=== PATIENT | male | born 1965 | race Caucasian/White ===

== ENCOUNTER 2019-03-13 16:41 | Emergency (ER) | payer OTHER ==
[2019-03-13 17:09] VITALS: BP 129/67
--- NOTE | 2019-03-13 17:18 | UC ---
Back Pain HPI - HPI Summary HPI Summary: pt is c/o pain across his low back after he bent forward to lift a tub of mail out of his trunk today. he was going to go home but his employer advise he get checked. - History of Current Complaint Chief Complaint: UCBackPain Stated Complaint: BACK STRAIN Time Seen by Provider: 03/13/19 17:02 Hx Obtained From: Patient Onset/Duration: Sudden Onset Timing: Constant Pain Intensity: 6 Aggravating Factor(s): Other - leaning back and twisting Associated Signs And Symptoms: Positive: Other - no saddle anesthesia. Negative : Fever, Weakness, Numbness, Tingling, Abdominal Pain, Flank Pain, Bladder Incontinence, Bowel Incontinence - Risk Factors Cauda Equina Risk Factors: Negative Epidural Abscess Risk Factors: Negative - Allergies/Home Medications Allergies/Adverse Reactions: Allergies Allergy/AdvReac Type Severity Reaction Status Date / Time Penicillins Allergy Unknown Verified 03/13/19 17:05 Reaction Details PMH/Surg Hx/FS Hx/Imm Hx Previously Healthy: Yes - Surgical History Surgical History: None - Family History Known Family History: Positive: Non-Contributory - Social History Occupation: Employed Full-time Alcohol Use: Weekly Substance Use Type: None Smoking Status (MU): Never Smoked Tobacco - Immunization History Most Recent Tetanus Shot: utd Review of Systems All Other Systems Reviewed And Are Negative: No Constitutional: Negative: Fever, Chills Gastrointestinal: Negative: Abdominal Pain Musculoskeletal: Negative: Decreased ROM Neurological: Negative: Weakness, Paresthesia, Numbness Physical Exam Triage Information Reviewed: Yes Appearance: Well-Appearing Vital Signs: Initial Vital Signs Temp 99.1 F 03/13/19 17:05 Pulse 58 03/13/19 17:05 Resp 16 03/13/19 17:05 BP 129/67 03/13/19 17:05 Pulse Ox 100 03/13/19 17:05 Vital Signs Reviewed: Yes Eyes: Positive: Conjunctiva Clear ENT: Positive: Normal ENT inspection Neck: Positive: Supple, Nontender, No Lymphadenopathy, Other: - c-spine non tender Respiratory: Positive: No respiratory distress Cardiovascular: Positive: RRR Abdomen Description: Positive: Nontender, No Organomegaly, Soft. Negative: Pulsatile Mass Bowel Sounds: Positive: Present Musculoskeletal: Positive: Other: - Back: no rash. mild decrease in lumbar lordosis. Spine is non tender. Back is non tender over paraspinal mm's. ROM intact in all directions, pt notes twisting and hyperextension cause some mild discomfort. 5/5 strenght, 1+ reflexes and sensation intactx4. no saddle anesthesia. Steady gait. Negative straight leg raises x2. Neurological: Positive: Alert Psychological: Positive: Age Appropriate Behavior Skin Exam: Normal Skin: Negative: Rashes Back Pain Course/Dx - Differential Dx/Diagnosis Differential Diagnosis/HQI/PQRI: Other - no concern for fx, cauda equina, acute abdomen or fx. will tx with nsaid, mm relaxor but not during driving/work plus limited duty. Provider Diagnosis: Low back pain Discharge ED - Sign-Out/Discharge Documenting (check all that apply): Patient Departure All imaging exams completed and their final reports reviewed: No Studies - Discharge Plan Condition: Stable Disposition: HOME Prescriptions: Cyclobenzaprine TAB* [Flexeril 10 MG TAB*] 10 mg PO TID PRN #10 tab PRN Reason: Spasms - Back Naproxen [Naprosyn 500 mg tab] 500 mg PO BID 5 Days #10 tablet Patient Education Materials: Acute Low Back Pain (ED) Forms: *Work Release Referrals: Rosalva Gallegos MD [Primary Care Provider] - 5 Days - Billing Disposition and Condition Condition: STABLE Disposition: Home - Attestation Statements Provider Attestation: This patient was not seen by me. I was available for consult. STEVE
== END 2019-03-13 17:28 | disposition home or self-care (01) ==
LOC: UCCORT 16:41
DX: M54.5 Low back pain (principal)
CPT/HCPCS: 99202; G0463